=== PATIENT | female | born 1955 | race Two or more races ===

== ENCOUNTER 2018-02-25 22:34 | Emergency (ER) | payer MEDICAID ==
[~2018-02-25] VITALS: Ht 162.6 cm; Wt 64.0 kg
[2018-02-25 23:33] VITALS: BP 101/65
[2018-02-25 23:38] LABS: ANION GAP 10 mmol/L (5-15); CALCIUM 8.1 mg/dL (8.5-10.1); CHLORIDE 108 mmol/L (98-107); CREATININE 0.58 mg/dL (0.55-1.02)
[2018-02-25 23:39] LABS: ALBUMIN 3.9 g/dL (3.4-5.0)
== END 2018-02-26 03:38 | disposition home or self-care (01) ==
LOC: ED 23:59
DX: F10.129 Alcohol abuse with intoxication, unspecified (principal); E11.65 Type 2 diabetes mellitus with hyperglycemia
CPT/HCPCS: 36415; 80048; 80307; 82040; 99284